=== PATIENT | male | born 1975 | race Caucasian/White ===

== ENCOUNTER 2016-08-25 08:38 | Outpatient (CLI) | payer BC | END 2016-08-25 08:39 | disposition home or self-care (01) | DX: I10 Essential (primary) hypertension (principal); E78.5 Hyperlipidemia, unspecified; E55.9 Vitamin D deficiency, unspecified ==

== ENCOUNTER 2016-12-22 10:16 | Outpatient (CLI) | payer BC ==
[2016-12-22 17:59] LABS: CALCIUM 9.6 mg/dL (8.5-10.3); CREATININE 0.9 mg/dL (0.6-1.2); MAGNESIUM 2.5 mg/dL (1.7-2.8); PHOSPHORUS 2.6 mg/dL (2.5-4.6)
== END 2016-12-22 10:17 | disposition home or self-care (01) ==
LOC: LAB.F 10:16
PROVIDERS: ATTEND Internal Medicine
DX: R25.2 Cramp and spasm (principal)
CPT/HCPCS: 36415; 80048; 83735; 84100

== ENCOUNTER 2017-07-20 15:45 | Emergency (ER) | payer OTHER, BC ==
[2017-07-20] MEDS ORDERED: HYDROcod/ACETAM 5/325 MG TABLET PO STA (16:21)
--- NOTE | 2017-07-20 16:23 | ED Physician Documentation ---
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 Difficulty moving the left shoulder. No head or neck injury.) Review of Systems Cardiac: reports: Reviewed and negative Respiratory: reports: Reviewed and negative GI: reports: Reviewed and negative PD PAST MEDICAL HISTORY - Past Medical History Past Medical History: Yes Cardiovascular: Hypertension - Past Surgical History Past Surgical History: Yes - Present Medications Home Medications: Ambulatory Orders Medication Instructions Recorded Confirmed HYDROcod/ACETAM 5/325 [[place] 5/325] 1 - 2 ea PO Q6H PRN #30 tablet 07/20/17 - Allergies Allergies/Adverse Reactions: Allergies Allergy/AdvReac Type Severity Reaction Status Date / Time No Known Drug Allergies Allergy Verified 07/20/17 16:11 - Social History Does the pt smoke?: No Smoking Status: Never smoker PD ED PE NORMAL - Vitals Vital signs reviewed: Yes - General General: Alert and oriented X 3, No acute distress - Neck Neck: Supple, no meningeal sign, No bony TTP - Extremities Extremities: Other (He is tender over the left scapula, not the shoulder over the top, humerus, or clavicle/AC joint. He is unable to abduct at all due to pain. 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 He is also tender over the lateral left upper and mid ribs.) - Neuro Neuro: Alert and oriented X 3, Normal speech - Psych Psych: Normal mood, Normal affect Results - Vitals Vitals: Vital Signs - 24 hr 07/20/17 16:11 Temperature 36.4 C L Heart Rate 84 Respiratory 20 Rate Blood Pressure 127/78 O2 Saturation 97 Oxygen O2 Source Room air - Rads (name of study) X-rays of the left ribs and left scapula Radiology: EMP read contemporaneously (Mid scapular fracture without rib fracture) PD MEDICAL DECISION MAKING - ED course ED course: 42-year-old gentleman presents with what seems like an isolated scapular issue and has shown to have scapular fracture on x-ray, case discussed by phone with Dr. Stratton the orthopedic data management consultant felt this was to be conservatively managed with a sling. Departure - Departure Disposition: 01 Home, Self Care Clinical Impression: Left scapula fracture Qualifiers: Encounter type: initial encounter Scapula location: body Fracture type: closed Fracture alignment: displaced Qualified Code(s): S42.112A - Displaced fracture of body of scapula, left shoulder, initial encounter for closed fracture Contusion of rib on left side Qualifiers: Encounter type: initial encounter Qualified Code(s): S20.212A - Contusion of left front wall of thorax, initial encounter Condition: Good Record reviewed to determine appropriate education?: Yes Instructions: ED Fx Shoulder Follow-Up: [facility] [Provider Group] - Within 1 week Prescriptions: HYDROcod/ACETAM 5/325 [[place] 5/325] 1 - 2 ea PO Q6H PRN #30 tablet PRN Reason: Pain Comments: Do not drink or drive while taking narcotic pain medication. Note that many narcotic pain relievers also contain Tylenol/acetaminophen. Please ensure that your total dose of acetaminophen from all sources does not exceed 3 g (3000 mg) per day. You may get constipated while on this medication. Take a stool softener such as Colace twice a day while you are on it. Also add an [id number] laxative such as senna or MiraLAX on any day that you do not have a bowel movement. If you received a narcotic pain medication or sedative while in the emergency department, do not drive for the next 24 hours. Forms: Activity restrictions
--- NOTE | 2017-07-20 17:41 | XRAY Preliminary Report ---
Exam: XR SCAPULA 2 VIEW LT IMPRESSION: Left scapular fracture. [facility] SITE ID: [id number]
--- NOTE | 2017-07-20 17:41 | XRAY Report ---
EXAM: LEFT SCAPULA RADIOGRAPHY EXAM DATE: 07/20/2017 05:18 PM. CLINICAL HISTORY: Trauma, pain. COMPARISON: None. TECHNIQUE: 2 views. FINDINGS: Bones: Comminuted fracture of the mid and lower portions of the scapula with displacement of some fra cture fragments. Otherwise unremarkable. Joints: The glenohumeral and acromioclavicular joints are normal and without subluxation. Other: Clear visualized lung. IMPRESSION: Left scapular fracture. [facility] Referring Provider Line: [phone] SITE ID: [id number]
--- NOTE | 2017-07-20 17:44 | XRAY Report ---
EXAM: LEFT RIB RADIOGRAPHY EXAM DATE: 07/20/2017 05:18 PM. CLINICAL HISTORY: Trauma, pain. COMPARISON: Chest dated 02/27/2008. TECHNIQUE: 1 view of the chest and 2 views of the ribs. FINDINGS: Bones: See separate report for left scapular fracture. Degenerative changes in the spine. Otherwise u nremarkable. Lungs: Minimal left basilar atelectasis. Otherwise clear. No effusion or pneumothorax. Mediastinum: Heart and mediastinal contours are unremarkable. Upper lobe vessels not distended. Other: None. IMPRESSION: Left scapular fracture. No other definite acute disease. [facility] Referring Provider Line: [phone] SITE ID: [id number]
--- NOTE | 2017-07-20 17:44 | XRAY Preliminary Report ---
Exam: XR RIBS W/PA CHEST LT IMPRESSION: Left scapular fracture. No other definite acute disease. [facility] SITE ID: [id number]
[2017-07-20 18:13] VITALS: BP 142/92
== END 2017-07-20 18:18 | disposition home or self-care (01) ==
LOC: ED 15:45
DX: S42.112A Displaced fracture of body of scapula, left shoulder, initial encounter for closed fracture (principal); S20.212A Contusion of left front wall of thorax, initial encounter; W17.2XXA Fall into hole, initial encounter; Y99.0 Civilian activity done for income or pay; I10 Essential (primary) hypertension
CPT/HCPCS: 71101; 73010; 99283; A9270

== ENCOUNTER 2017-09-23 07:58 | Outpatient (CLI) | payer OTHER, BC ==
--- NOTE | 2017-09-23 19:03 | MRI Report ---
EXAM: LEFT SHOULDER MRI WITHOUT CONTRAST EXAM DATE: 09/23/2017 09:01 AM. CLINICAL HISTORY: Left shoulder pain. COMPARISON: Scapula 2 views 07/20/2017. TECHNIQUE: Multiplanar, multisequence T1-weighted and fluid-sensitive sequences of the shoulder witho ut contrast. Other: None. FINDINGS: Acromioclavicular Region: The acromion is type II. Small fluid collection acromioclavicular joint. Mi ld spurring anterior inferior acromion. Mild lateral downsloping acromion. The coracoacromial and cor acoclavicular ligaments are intact. Synovitis or debris anterior subdeltoid bursa. Glenohumeral Region: Mild posterior subluxation humerus head. Full-thickness fluid signal articular c artilage defect superior glenoid 2 cm in AP dimension and 1.3 cm in height. Filling defect inferior g lenohumeral joint secondary to hypertrophy inferior glenohumeral ligament, displaced articular cartil age fragment or displaced labrum tear. The glenohumeral ligaments and joint capsule are unremarkable. Bone Marrow: Cortical irregularity and marrow edema anterior humerus head. Labrum: The superior labrum is intact. No fluid signal labrum tear identified on axial proton density fat saturation sequence. Musculature/Rotator Cuff: Negative for rotator cuff muscle atrophy or edema. Negative for rotator cuf f tendon tear. No edema or fatty atrophy. Biceps Tendon: The long head of the biceps tendon and biceps brittany are intact. Other: The subcutaneous tissues are unremarkable. IMPRESSION: 1. Synovitis or debris consistent with complicated anterior subdeltoid bursitis with associated anter ior humerus head mild reactive marrow edema and cortical irregularity (image 4 series 701). 2. There is a full-thickness articular cartilage fluid signal defect at the superior glenoid and line ar filling defect is seen at the inferior glenohumeral joint with differential considerations to incl ude displaced articular cartilage fragment or displaced labrum tear. MR arthrogram may improve deline ation. 3. Negative for rotator cuff tear. [facility] MUSCULOSKELET[facility] SECTION Referring Provider Line: [phone] SITE ID: [id number]
== END 2017-09-23 07:59 | disposition home or self-care (01) ==
LOC: DI 07:58
PROVIDERS: ATTEND Orthopaedic Surgery
DX: M25.512 Pain in left shoulder (principal)

== ENCOUNTER 2018-03-26 07:44 | Outpatient (CLI) | payer BC ==
[2018-03-26 10:48] LABS: BASOPHILS % (AUTO) 0.4 %; EOSINOPHILS # (AUTO) 0.3 10^3/uL (0.0-0.7); EOSINOPHILS % (AUTO) 3.2 %; HGB - HEMOGLOBIN 15.9 g/dL (14.0-18.0); LYMPHOCYTES # (AUTO) 3.1 10^3/uL (1.5-3.5); LYMPHOCYTES % (AUTO) 38.2 %; MEAN CORPUSCULAR HEMOGLOBIN 30.3 pg (27.0-31.0); MEAN CORPUSCULAR HGB CONC 34.2 g/dL (32.0-36.0); MEAN CORPUSCULAR VOLUME 88.8 fL (80.0-94.0); MONOCYTES # (AUTO) 0.7 10^3/uL (0.0-1.0); MONOCYTES % (AUTO) 8.5 %; NEUTROPHILS % (AUTO) 49.7 %; PLT - PLATELET COUNT 257 10^3/uL (130-450); RED BLOOD COUNT 5.23 10^6/uL (4.70-6.10); RED CELL DISTRIBUTION WIDTH 13.4 % (12.0-15.0)
[2018-03-26 11:22] LABS: ALBUMIN/GLOBULIN RATIO 1.2 (1.0-2.2); ALKALINE PHOSPHATASE 64 IU/L (42-121); ALT ALANINE AMINOTRANSFERASE 14 IU/L (10-60); AST ASPARTATE AMINOTRANSFERASE 19 IU/L (10-42); BILIRUBIN,TOTAL 0.3 mg/dL (0.2-1.0); BUN - BLOOD UREA NITROGEN 9 mg/dL (6-20); CALCIUM 9.1 mg/dL (8.5-10.3); CARBON DIOXIDE - CO2 26 mmol/L (21-32); CHLORIDE 103 mmol/L (101-111); CHOL/HDL RATIO 7.4 (<5.0); CHOLESTEROL 228 mg/dL; CREATININE 0.8 mg/dL (0.6-1.2); GFR - MDRD 105 (>89); GLUCOSE 98 mg/dL (70-100); HDL CHOLESTEROL 31 mg/dL; LDL CHOLESTEROL,CALCULATED 163 mg/dL; LDL/HDL RATIO 5.3 (<3.6); SODIUM 137 mmol/L (135-145); TOTAL PROTEIN 7.3 g/dL (6.7-8.2); VLDL CHOLESTEROL 34 mg/dL
== END 2018-03-26 07:45 | disposition home or self-care (01) ==
LOC: LAB.F 07:44
PROVIDERS: ATTEND Physician Assistant Medical
DX: I10 Essential (primary) hypertension (principal); E78.5 Hyperlipidemia, unspecified
CPT/HCPCS: 36415; 80053; 80061; 83721; 85025

== ENCOUNTER 2019-01-09 08:48 | Outpatient (CLI) | payer BC ==
[2019-01-09 11:36] LABS: BASOPHILS % (AUTO) 0.5 %; EOSINOPHILS # (AUTO) 0.2 10^3/uL (0.0-0.7); EOSINOPHILS % (AUTO) 3.1 %; HGB - HEMOGLOBIN 15.9 g/dL (14.0-18.0); LYMPHOCYTES % (AUTO) 38.5 %; MEAN CORPUSCULAR HEMOGLOBIN 29.7 pg (27.0-31.0); MEAN CORPUSCULAR HGB CONC 32.4 g/dL (32.0-36.0); MEAN CORPUSCULAR VOLUME 91.6 fL (80.0-94.0); MONOCYTES # (AUTO) 0.5 10^3/uL (0.0-1.0); MONOCYTES % (AUTO) 6.4 %; NEUTROPHILS % (AUTO) 51.2 %; PLT - PLATELET COUNT 271 10^3/uL (130-450); RED BLOOD COUNT 5.36 10^6/uL (4.70-6.10); RED CELL DISTRIBUTION WIDTH 13.8 % (12.0-15.0); WHITE BLOOD COUNT 7.8 x10^3/uL (4.8-10.8)
[2019-01-09 11:48] LABS: ALBUMIN 4.3 g/dL (3.2-5.5); ALBUMIN/GLOBULIN RATIO 1.1 (1.0-2.2); ALKALINE PHOSPHATASE 80 IU/L (42-121); ALT ALANINE AMINOTRANSFERASE 15 IU/L (10-60); AST ASPARTATE AMINOTRANSFERASE 17 IU/L (10-42); BILIRUBIN,TOTAL 0.6 mg/dL (0.2-1.0); BUN - BLOOD UREA NITROGEN 6 mg/dL (6-20); CALCIUM 9.3 mg/dL (8.5-10.3); CARBON DIOXIDE - CO2 25 mmol/L (21-32); CHLORIDE 101 mmol/L (101-111); CHOL/HDL RATIO 6.4 (<5.0); CHOLESTEROL 223 mg/dL; CREATININE 0.8 mg/dL (0.6-1.2); GFR - MDRD 105 (>89); GLUCOSE 109 mg/dL (70-100); HDL CHOLESTEROL 35 mg/dL; LDL CHOLESTEROL,CALCULATED 148 mg/dL; LDL/HDL RATIO 4.2 (<3.6); SODIUM 137 mmol/L (135-145); TOTAL PROTEIN 8.1 g/dL (6.7-8.2); VLDL CHOLESTEROL 40 mg/dL
== END 2019-01-09 08:49 | disposition home or self-care (01) ==
LOC: LAB.F 08:48
PROVIDERS: ATTEND Physician Assistant Medical
DX: I10 Essential (primary) hypertension (principal); E78.5 Hyperlipidemia, unspecified
CPT/HCPCS: 36415; 80053; 80061; 83721; 85025

== ENCOUNTER 2020-11-24 07:11 | Outpatient (CLI) | payer BC ==
[2020-11-24 07:40] LABS: ALBUMIN 4.2 g/dL (3.2-5.5); ALBUMIN/GLOBULIN RATIO 1.3 (1.0-2.2); ALKALINE PHOSPHATASE 77 IU/L (42-121); ALT ALANINE AMINOTRANSFERASE 17 IU/L (10-60); AST ASPARTATE AMINOTRANSFERASE 16 IU/L (10-42); BILIRUBIN,TOTAL 0.5 mg/dL (0.2-1.0); BUN - BLOOD UREA NITROGEN 11 mg/dL (6-20); CALCIUM 9.4 mg/dL (8.5-10.3); CARBON DIOXIDE - CO2 28 mmol/L (21-32); CHLORIDE 102 mmol/L (101-111); CHOL/HDL RATIO 5.3 (<5.0); CHOLESTEROL 160 mg/dL; CREATININE 0.9 mg/dL (0.6-1.2); GFR - MDRD 90 (>89); GLUCOSE 103 mg/dL (70-100); HDL CHOLESTEROL 30 mg/dL; LDL CHOLESTEROL,CALCULATED 98 mg/dL; LDL/HDL RATIO 3.3 (<3.6); POTASSIUM 4.4 mmol/L (3.5-5.0); SODIUM 139 mmol/L (135-145); TOTAL PROTEIN 7.5 g/dL (6.7-8.2); TRIGLYCERIDES 162 mg/dL; VLDL CHOLESTEROL 32 mg/dL
== END 2020-11-24 07:12 | disposition home or self-care (01) ==
LOC: LAB 07:11
PROVIDERS: ATTEND Physician Assistant
DX: E78.5 Hyperlipidemia, unspecified (principal); I10 Essential (primary) hypertension; Z79.899 Other long term (current) drug therapy
CPT/HCPCS: 36415; 80053; 80061; 83721

== ENCOUNTER 2021-05-14 04:12 | Emergency (ER) | payer BC ==
[2021-05-14 04:59] VITALS: BP 158/80
--- NOTE | 2021-05-14 05:13 | ED Physician Documentation ---
PD HPI LOWER EXT INJURY - Stated complaint Stated Complaint: R TOE PX - Chief complaint Chief Complaint: Ext Problem - History obtained from History obtained from: Patient - History of Present Illness PD HPI LOW EXT INJURY LOCATION: Toe (base of great toe.) Type of injury: Other (awoke with great toe hurting 3 days ago without apparent injury. Continues to worsen.). No: Fall, Twist Where injury occurred: Home Timing - onset: How many days ago (3) Timing - duration: Days (3) Timing - details: Gradual onset, Still present Associated symptoms: Swelling, Discolored (some redness). No: Weakness, Numbness Similar symptoms before: Has not had sx before Review of Systems Constitutional: denies: Fever, Chills Nose: denies: Rhinorrhea / runny nose, Congestion Throat: denies: Sore throat Respiratory: denies: Cough Skin: denies: Lesions, Abrasion (s), Laceration (s) Musculoskeletal: denies: Back pain Neurologic: denies: Focal weakness, Numbness PD PAST MEDICAL HISTORY - Past Medical History Cardiovascular: Hypertension Respiratory: None Endocrine/Autoimmune: None - Past Surgical History Past Surgical History: Yes - Present Medications Home Medications: Ambulatory Orders Medication Instructions Recorded Confirmed HYDROcod/ACETAM 5/325 [[place] 5/325] 1 - 2 ea PO Q6H PRN #30 tablet 07/20/17 dexAMETHasone [Decadron] 4 mg PO DAILY #5 tablet 05/14/21 - Allergies Allergies/Adverse Reactions: Allergies Allergy/AdvReac Type Severity Reaction Status Date / Time No Known Drug Allergies Allergy Verified 05/14/21 04:59 - Social History Does the pt smoke?: No Smoking Status: Never smoker PD ED PE NORMAL - Vitals Vital signs reviewed: Yes - General General: Alert and oriented X 3, Well developed/nourished, Other (appears in pain from the toe. ) - Derm Derm: Normal color, Warm and dry - Extremities Extremities: Other (great toe dorsal MTP area with some redness and swelling, and markedly tender. ) - Neuro Neuro: Alert and oriented X 3, No motor deficit, No sensory deficit Results - Vitals Vitals: Oxygen O2 Source Room air - Rads (name of study) foot xray Radiology: Prelim report reviewed (no acute process), See rad report PD MEDICAL DECISION MAKING - ED course Complexity details: reviewed results (xray normal), considered differential (seems gouty in presentation without history of gout. No skin lesions to suggest nidus for infection. ), d/w patient Departure - Departure Disposition: 01 Home, Self Care Clinical Impression: Pain of right great toe Condition: Stable Record reviewed to determine appropriate education?: Yes Instructions: ED Arthritis Gout Prescriptions: dexAMETHasone [Decadron] 4 mg PO DAILY #5 tablet Comments: Your x-ray is normal without any signs of fractures or dislocation. No obvious degenerative arthritis in the joint. I presume this is either a sprain of the t oe with continued inflammation versus inflammatory arthritis related to local injury or potentially this would be a really good location for an episode of gout which is a reactive arthritis from minor injury with crystal formation in the joint. Common treatment for all of these would be anti-inflammatories and some pain medicine and typically resolution over few days. Use ibuprofen 600 mg or so at home 3 times a day with food. That would be 3 [id number] tablets at a time. Do this over the next 3 to 5 days. Add Tylenol or the hydrocodone if needed for pain. If not well resolved over the next few days or lingering symptoms a bit, then change to the dexamethasone steroid anti-inflammatory instead. Discharge Date/Time: 05/14/21 06:57
[2021-05-14] MEDS ORDERED: DEXAMETHASONE 10 MG/ML VIAL PO STA (05:40)
[2021-05-14] MEDS ORDERED: CHERRY SYRUP 10 ML UDC PO ONE (05:40)
[2021-05-14] MEDS ORDERED: ACETAMINOPHEN 325 MG TABLET PO STA (05:40)
[2021-05-14] MEDS ORDERED: HYDROcod/ACET 5/325 Prepack 4 PO STA (05:40)
--- NOTE | 2021-05-14 10:07 | XRAY Report ---
PROCEDURE: Toe(s) RT INDICATIONS: great toe MTP pain TECHNIQUE: 3 views of the first toe(s) acquired. COMPARISON: None FINDINGS: Bones: No fractures or dislocations. No suspicious bony lesions. Bipartite appearance of the sesam oid bone. Soft tissues: No suspicious soft tissue densities. IMPRESSION: Bipartite appearance of the sesamoid bone. Recommend correlation point tenderness as are underlying f racture cannot be definitively excluded. Otherwise, no visualized acute fracture or dislocation. However, occult injury cannot be excluded. Re commend short interval imaging follow-up in 7-10 days as clinically indicated for additional evaluati on. The above findings are concordant with preliminary report. Reviewed by: Delmis Vallejo MD on 05/14/2021 10:06 AM PDT Approved by: Delmis Vallejo MD on 05/14/2021 10:06 AM PDT Station ID: [id number]
== END 2021-05-14 06:57 | disposition home or self-care (01) ==
LOC: ED 04:12
DX: M79.674 Pain in right toe(s) (principal); I10 Essential (primary) hypertension
CPT/HCPCS: 73660; 99282; 99283; A9270

== ENCOUNTER 2021-06-16 07:40 | Outpatient (CLI) | payer BC | END 2021-06-16 07:41 | disposition home or self-care (01) | LOC: LAB.N 07:40 | PROVIDERS: ATTEND Internal Medicine | DX: M10.9 Gout, unspecified (principal) | CPT/HCPCS: 36415; 84550 ==

== ENCOUNTER 2021-10-06 07:09 | Outpatient (CLI) | payer BC | END 2021-10-06 07:10 | disposition home or self-care (01) | LOC: LAB.N 07:09 | PROVIDERS: ATTEND Internal Medicine | DX: M10.9 Gout, unspecified (principal) | CPT/HCPCS: 36415; 84550 ==